=== PATIENT | female | born 1990 | race Two or more races ===

== ENCOUNTER 2017-11-22 19:35 | Emergency (ER) | payer OTHER ==
--- NOTE | 2017-11-22 20:28 | ER Document Report ---
ED GI/ - General Chief Complaint: Vag Bleeding, +preg <12wks Stated Complaint: CRAMPING/BLEEDING 10 WEEKS Time Seen by Provider: 11/22/17 20:18 Mode of Arrival: Ambulatory Information source: Patient Notes: Chief complaint: Vaginal bleeding History of complain:( obtained from----patient) 27 years old female 10 weeks , presents today with 2 episodes of bleeding she noted in the pad. No heavy bleeding. She also had lower abdominal cramps. No nausea vomiting. Denies any constitutional symptoms 2 days ago she had an ultrasound they could not find a heart sound. Onset: Since this morning gradual Duration: Since this morning Severity: Mild to moderate Quality: Crampy Context: Exacerbating factor and relieving factors: None REVIEW OF SYSTEMS: CONSTITUTIONAL : Denies fever, chills, or sweats. Denies recent illness. EENT: Denies eye, ear, throat, or mouth pain or symptoms. Denies nasal or sinus congestion or discharge. Denies throat, tongue, or mouth swelling or difficulty swallowing. CARDIOVASCULAR: Denies chest pain. Denies palpitations or racing or irregular heart beat. Denies ankle edema. RESPIRATORY: Denies cough, cold, or chest congestion. Denies shortness of breath, difficulty breathing, or wheezing. GASTROINTESTINAL: Denies distention. Denies nausea, vomiting, or diarrhea. Denies blood in vomitus, stools, or per rectum. Denies black, tarry stools. Denies constipation. GENITOURINARY: Denies difficulty urinating, painful urination, burning, frequency, blood in urine, or discharge. FEMALE GENITOURINARY: Denies vaginal bleeding, heavy or abnormal periods, irregular periods. Denies vaginal discharge or odor. MUSCULOSKELETAL: Denies back or neck pain or stiffness. Denies joint pain or swelling. SKIN: Denies rash, lesions or sores. HEMATOLOGIC : Denies easy bruising or bleeding. LYMPHATIC: Denies swollen, enlarged glands. NEUROLOGICAL: Denies confusion or altered mental status. Denies passing out or loss of consciousness. Denies dizziness or lightheadedness. Denies headache. Denies weakness or paralysis or loss of use of either side. Denies problems with gait or speech. Denies sensory loss, numbness, or tingling. Denies seizures. PSYCHIATRIC: Denies anxiety or stress. Denies depression, suicidal ideation, or homicidal ideation. ALL OTHER SYSTEMS REVIEWED AND NEGATIVE. PHYSICAL EXAMINATION: GENERAL: Well-appearing, well-nourished and in no acute distress. HEAD: Atraumatic, normocephalic. EYES: Pupils equal round and reactive to light, extraocular movements intact, conjunctiva are normal. ENT: Nares patent, oropharynx clear without exudates. Moist mucous membranes. NECK: Normal range of motion, supple without lymphadenopathy LUNGS: Breath sounds clear to auscultation bilaterally and equal. No wheezes rales or rhonchi. HEART: Regular rate and rhythm without murmurs ABDOMEN: Soft, nontender, nondistended abdomen. No guarding, no rebound. No masses appreciated. Examination of genitals-deferred Musculoskeletal: Normal range of motion, no pitting or edema. No cyanosis. NEUROLOGICAL: Cranial nerves grossly intact. Normal speech, normal gait. Normal sensory, motor exams PSYCH: Normal mood, normal affect. SKIN: Warm, Dry, normal turgor, no rashes or lesions noted. Dictation was performed using [employer] voice recognition software - [facility] Notes: 11/22/17 20:27 Dictated - Related Data Allergies/Adverse Reactions: No Known Allergies Allergy (Unverified 09/08/13 22:54) Past Medical History - Social History Smoking Status: Never Smoker Chew tobacco use (# tins/day): No Frequency of alcohol use: None Drug Abuse: None Lives with: Family Family History: Reviewed & Not Pertinent, Hypertension Patient has suicidal ideation: No Patient has homicidal ideation: No Renal/ Medical History: Denies: Hx Peritoneal Dialysis Musculoskeletal Medical History: Reports Hx Musculoskeletal Trauma Traumatic Medical History: Reports: Hx Fractures - Immunizations Immunizations up to date: Yes Hx Diphtheria, Pertussis, Tetanus Vaccination: Yes Review of Systems - Review of Systems Notes: Dictated Physical Exam - Vital signs Vitals: Temp Pulse Resp BP Pulse Ox 98.5 F 68 20 113/74 100 11/22/17 19:46 11/22/17 19:46 11/22/17 19:46 11/22/17 19:46 11/22/17 19:46 - Notes Notes: Dictated Course - Vital Signs Vital signs: Temp Pulse Resp BP Pulse Ox 98.5 F 68 20 113/74 100 11/22/17 19:46 11/22/17 19:46 11/22/17 19:46 11/22/17 19:46 11/22/17 19:46 - Laboratory Result Diagrams: 11/22/17 20:30 Laboratory results interpreted by me: 11/22/17 20:30 WBC 10.6 H Discharge - Discharge Clinical Impression: Threatened Condition: Fair Disposition: HOME, SELF-CARE Instructions: Threatened Abortions ( Patients)
[2017-11-22 20:39] LABS: ABSOLUTE BASOPHILS # (AUTO) 0.1 10^3/uL (0.0-0.2); ABSOLUTE EOSINOPHILS # (AUTO) 0.1 10^3/uL (0.0-0.6); ABSOLUTE LYMPHOCYTES (AUTO) 3.4 10^3/uL (0.5-4.7); ABSOLUTE MONOCYTES (AUTO) 0.6 10^3/uL (0.1-1.4); ABSOLUTE NEUT (AUTO) 6.4 10^3/uL (1.7-8.2); BASOPHILS % (AUTO) 0.5 % (0-2); EOSINOPHILS % (AUTO) 1.2 % (0-6); HEMATOCRIT 39.9 % (36.0-47.0); HEMOGLOBIN 13.7 g/dL (12.0-15.5); LYMPHOCYTES % (AUTO) 32.4 % (13-45); MEAN CORPUSCULAR HEMOGLOBIN 31.1 pg (27.0-33.4); MEAN CORPUSCULAR HGB CONC 34.4 g/dL (32.0-36.0); MEAN CORPUSCULAR VOLUME 91 fl (80-97); PLATELET COUNT 267 10^3/uL (150-450); RED CELL DISTRIBUTION WIDTH 12.3 % (11.5-14.0); SEGMENTED NEUTROPHILS % (AUTO) 59.9 % (42-78); TOTAL CELLS COUNTED % (AUTO) 100 %; WHITE BLOOD COUNT 10.6 10^3/uL (4.0-10.5)
--- NOTE | 2017-11-22 22:27 | RADIOLOGY REPORT (SQ) ---
US TRANSVAGINAL HISTORY: , bleeding COMPARISON: None. TECHNIQUE: Multiple grayscale and Color doppler real-time sonographic images were obtained by the neurology technologist. Selected static images are presented to the radiologist. FINDINGS: There is an intrauterine gestational sac and yolk sac with mean sac diameter 2.3 x 1.6 x 2.5 cm, which corresponds to 7 weeks 3 days no pole is identified at this time. IMPRESSION: Intrauterine gestational sac and yolk sac. No pole is identified.
[2017-11-22 23:28] VITALS: BP 129/82
== END 2017-11-22 23:29 | disposition home or self-care (01) ==
LOC: ER 19:35
DX: O20.0 Threatened abortion (principal); O20.9 Hemorrhage in early pregnancy, unspecified; Z3A.10 10 weeks gestation of pregnancy
CPT/HCPCS: 36415; 76817; 84702; 85025; 99284

== ENCOUNTER 2017-11-25 20:09 | Emergency (ER) | payer OTHER ==
[2017-11-25] MEDS ORDERED: ACETAMINOPHEN 325 MG TABLET PO ONE ×2 (23:53→23:56)
[2017-11-25] MEDS ORDERED: PENICILLIN G BENZATHINE 1.2 MILLION UNIT/2 ML DISP.SYRIN IM ONE (23:57)
--- NOTE | 2017-11-26 01:02 | RADIOLOGY REPORT (SQ) ---
EXAM DESCRIPTION: XR CHEST 2 VIEWS COMPLETED DATE/TME: 11/25/2017 23:57 CLINICAL HISTORY: cough, cp COMPARISON: None. FINDINGS: Frontal and lateral views of the chest. The cardiomediastinal silhouette has normal size and contour. No consolidation, pneumothorax, or pleural effusion. No displaced rib fractures identified. Upper abdominal soft tissues are unremarkable. IMPRESSION: 1. No acute pulmonary process identified.
[2017-11-26 01:18] VITALS: BP 105/60
--- NOTE | 2017-11-26 01:42 | ER Document Report ---
HPI - HPI Patient complains to provider of: Sore throat, chest pressure Onset: This afternoon Onset/Duration: Gradual Quality of pain: Achy Pain Level: 3 Context: Patient presents complaining of sore throat with chest pressure that started this afternoon. Patient does report mild cough. Patient does have a fever here tonight. Patient is currently 10 weeks . Associated Symptoms: Chest pain, Nonproductive cough, Fever, Sore throat. denies: Vomiting Exacerbated by: Denies Relieved by: Denies Similar symptoms previously: No Recently seen / treated by doctor: No - ROS ROS below otherwise negative: Yes Systems Reviewed and Negative: Yes All other systems reviewed and negative - CONSTITUTIONAL Constitutional: REPORTS: Fever, Chills - EENT EENT: REPORTS: Sore Throat. DENIES: Ear Pain, Eye problems - NEURO Neurology: DENIES: Headache, Vision blurred, Dizzinesss / Vertigo - CARDIOVASCULAR Cardiovascular: REPORTS: Chest pain - RESPIRATORY Respiratory: REPORTS: Coughing. DENIES: Trouble Breathing - GASTROINTESTINAL Gastrointestinal: DENIES: Abdominal Pain, Patient vomiting, Black / Bloody Stools - URINARY Urinary: DENIES: Dysuria, Urgency, Frequency - REPRODUCTIVE LMP: august 2017 10 weeks - MUSCULOSKELETAL Musculoskeletal: DENIES: Extremity pain - DERM Skin Color: Normal Skin Problems: None Past Medical History - General Information source: Patient - Social History Smoking Status: Never Smoker Frequency of alcohol use: None Drug Abuse: None Occupation: None Family History: Reviewed & Not Pertinent, Hypertension Patient has suicidal ideation: No Patient has homicidal ideation: No Renal/ Medical History: Denies: Hx Peritoneal Dialysis Musculoskeletal Medical History: Reports Hx Musculoskeletal Trauma Traumatic Medical History: Reports: Hx Fractures Surgical Hx: Negative - Immunizations Immunizations up to date: Yes Hx Diphtheria, Pertussis, Tetanus Vaccination: Yes Vertical Provider Document - CONSTITUTIONAL Agree With Documented VS: Yes Exam Limitations: No Limitations General Appearance: WD/WN, No Apparent Distress - INFECTION CONTROL TRAVEL OUTSIDE OF THE [place] IN LAST 30 DAYS: No - HEENT HEENT: Atraumatic, Normocephalic, Pharyngeal Exudate, Pharyngeal Tenderness, Pharyngeal Erythema - NECK Neck: Lymphadenopathy-Left, Lymphadenopathy-Right - RESPIRATORY Respiratory: Breath Sounds Normal, No Respiratory Distress. negative: Chest Non -Tender - Anterior chest wall tenderness to palpation - CARDIOVASCULAR Cardiovascular: Regular Rhythm, Tachycardia - GI/ABDOMEN Gastrointestinal: Abdomen Soft, Abdomen Non-Tender - BACK Back: Normal Inspection - MUSCULOSKELETAL/EXTREMETIES Musculoskeletal/Extremeties: MAEW - NEURO Level of Consciousness: Awake, Alert, Appropriate Motor/Sensory: No Motor Deficit - DERM Integumentary: Warm, Dry, No Rash Course - Re-evaluation Re-evalutation: 11/26/17 01:39 Patient's respirations even and unlabored, patient nontoxic in appearance. Patient does have exudative hypertrophic tonsils with cervical lymphadenopathy concerning for tonsillitis despite negative rapid strep testing. Good return precautions given to patient. Patient verbalized understanding and agrees with plan of care. Chest x-ray reviewed, no concern for pneumonia. - Vital Signs Vital signs: Temp Pulse Resp BP Pulse Ox 99.0 F 108 H 18 105/60 97 11/26/17 01:17 11/26/17 01:17 11/26/17 01:17 11/26/17 01:17 11/26/17 01:17 - Diagnostic Test Radiology reviewed: Image reviewed, Reports reviewed Discharge - Discharge Clinical Impression: Tonsillitis Fever Qualifiers: Fever type: unspecified Qualified Code(s): R50.9 - Fever, unspecified Chest pain Qualifiers: Chest pain type: unspecified Qualified Code(s): R07.9 - Chest pain, unspecified Condition: Stable Disposition: HOME, SELF-CARE Instructions: Acetaminophen, Antibiotic Shot ([facility]), Chest Pain of Unclear Cause ([facility]), Tonsillitis ([facility]) Additional Instructions: Return immediately for any new or worsening symptoms Followup with your primary care provider, call tomorrow to make a followup appointment Follow-up with your MEDIA ANALYTICS MANAGER provider tomorrow for recheck. Increase oral fluids and stay well-hydrated Take Tylenol [id number] for your pain as well as fever Referrals: [facility] [Provider Group] - Follow up as needed
== END 2017-11-26 01:55 | disposition home or self-care (01) ==
LOC: ER 20:09
DX: O99.511 Diseases of the respiratory system complicating pregnancy, first trimester (principal); J03.90 Acute tonsillitis, unspecified; O26.891 Other specified pregnancy related conditions, first trimester; R07.89 Other chest pain; R05 Cough; R50.9 Fever, unspecified; Z3A.10 10 weeks gestation of pregnancy
CPT/HCPCS: 99283; 96372; 87070; 87880; 87077; 71046; J0561

== ENCOUNTER 2019-01-11 21:00 | Outpatient (CLI) | payer OTHER ==
[2019-01-11 21:35] LABS: APPEARANCE,URINE CLEAR; BILIRUBIN,URINE NEGATIVE (NEGATIVE); COLOR,URINE STRAW; GLUCOSE, URINE NEGATIVE (NEGATIVE); KETONES,URINE NEGATIVE (NEGATIVE); LEUKOCYTE ESTERASE,URINE NEGATIVE (NEGATIVE); NITRITE,URINE NEGATIVE (NEGATIVE); PROTEIN,URINE NEGATIVE (NEGATIVE); URINE SPECIFIC GRAVITY 1.001; UROBILINOGEN,URINE NEGATIVE mg/dL (<2.0)
[2019-01-11 22:24] LABS: URINE AMPHETAMINES SCREEN NEGATIVE; URINE BARBITURATES SCREEN NEGATIVE; URINE BENZODIAZEPINES SCREEN NEGATIVE; URINE COCAINE SCREEN NEGATIVE; URINE MARIJUANA (THC) SCREEN NEGATIVE; URINE METHADONE SCREEN NEGATIVE; URINE PHENCYCLIDINE SCREEN NEGATIVE
[2019-01-12] MEDS: HYDROXYZINE PAMOATE 50 MG CAPSULE ONE ×2 (00:02→00:03)
--- NOTE | 2019-01-12 00:05 | Non Stress Test Report ---
Non Stress Test Datetime Report Generated by CPN: 01/12/2019 00:05 DEMOGRAPHIC Test Number: 1 EGA NST: 38.2 VITAL SIGNS Temperature - NST: 98.5 Pulse - NST: 81 RESP - NST: 14 NBPSYS NST: 120 NBPDIA NST: 68 URINE RESULTS Urine Protein, NST: Negative Urine Ketones - NST: Negative Urine Glucose - NST: Negative Urine Blood - NST: Negative MONITORING Monitor Explained: Monitor Explained; Test Explained; Patient Verbalized Understanding Time on Monitor: 01/11/2019 21:17 Time off Monitor: 01/11/2019 23:50 NST Duration: 153 NST INTERVENTIONS NST Interventions: PO Hydration; Vibroacoustic Stim; For Biophysical Profile Physician Notified NST: Dr. Howard BABY A: [id number] BABY A Movement : Present Contraction Frequency : irreg FHR Baseline : 135 Accelerations : 15X15 Decelerations : Variable Variability : Moderate 6-25bpm NST Review: Meets Criteria for Reactive NST NST Review and Verified By : D Bellavance RN NST Results: Reactive NST REPORT Report Trigger: Send Report
--- NOTE | 2019-01-12 00:19 | RADIOLOGY REPORT (SQ) ---
EXAM DESCRIPTION: US BIOPHYSICAL PROFILE WITHOUT NON STRESS TEST COMPLETED DATE/TME: 01/11/2019 22:52 CLINICAL HISTORY: 28 years Female occasional variable on nst COMPARISON: None. TECHNIQUE: Transabdominal duplex imaging performed to evaluate the pelvis. FINDINGS: The fetus is in vertex presentation. heart rate 149 bpm. Posterior placenta. SUYAPA 12.2 cm. breathing, tone and movement observed. IMPRESSION: Normal biophysical profile 10/02
[2019-01-12] MEDS ORDERED: HYDROXYZINE PAMOATE 50 MG CAPSULE PO ONE (00:30)
== END 2019-01-11 23:59 | disposition home or self-care (01) ==
LOC: LC 21:00
PROVIDERS: ATTEND Obstetrics & Gynecology Gynecology
PROC: 4A1HXCZ Monitoring of Products of Conception, Cardiac Rate, External Approach (ICD-10-PCS; principal; 2019-01-11)
DX: O47.1 False labor at or after 37 completed weeks of gestation (principal); Z3A.38 38 weeks gestation of pregnancy
CPT/HCPCS: 76819; 80307; 81005

== ENCOUNTER 2019-01-14 09:25 | Inpatient (IN) | payer OTHER ==
[2019-01-14] MEDS ORDERED: OXYTOCIN/NORMAL SALINE 20 UNIT/1,000 ML RTUINJ IV PRN ×2 (09:49→20:32)
[2019-01-14] MEDS ORDERED: RINGERS SOLUTION,LACTATED 300 ML IV ONE (09:49)
[2019-01-14] MEDS: RINGERS SOLUTION,LACTATED 1,000 ML IV PRN ×2 (10:35→19:12)
[2019-01-14 10:38] LABS: ABSOLUTE EOSINOPHILS # (AUTO) 0.1 10^3/uL (0.0-0.6); ABSOLUTE LYMPHOCYTES (AUTO) 2.2 10^3/uL (0.5-4.7); ABSOLUTE MONOCYTES (AUTO) 0.4 10^3/uL (0.1-1.4); ABSOLUTE NEUT (AUTO) 6.1 10^3/uL (1.7-8.2); BASOPHILS % (AUTO) 0.3 % (0-2); EOSINOPHILS % (AUTO) 0.8 % (0-6); HEMATOCRIT 33.8 % (36.0-47.0); HEMOGLOBIN 11.7 g/dL (12.0-15.5); LYMPHOCYTES % (AUTO) 24.5 % (13-45); MEAN CORPUSCULAR HEMOGLOBIN 29.6 pg (27.0-33.4); MEAN CORPUSCULAR HGB CONC 34.5 g/dL (32.0-36.0); MEAN CORPUSCULAR VOLUME 86 fl (80-97); MONOCYTES % (AUTO) 5.1 % (3-13); PLATELET COUNT 181 10^3/uL (150-450); RED BLOOD COUNT 3.94 10^6/uL (3.72-5.28); RED CELL DISTRIBUTION WIDTH 15.3 % (11.5-14.0); SEGMENTED NEUTROPHILS % (AUTO) 69.3 % (42-78); TOTAL CELLS COUNTED % (AUTO) 100 %; WHITE BLOOD COUNT 8.8 10^3/uL (4.0-10.5)
[2019-01-14] MEDS ORDERED: OXYTOCIN/NORMAL SALINE 20 UNIT/1,000 ML RTUINJ ONE (10:40)
[2019-01-14 10:59] LABS: APPEARANCE,URINE SLIGHTLY-CLOUDY; BILIRUBIN,URINE NEGATIVE (NEGATIVE); COLOR,URINE YELLOW; GLUCOSE, URINE NEGATIVE (NEGATIVE); KETONES,URINE NEGATIVE (NEGATIVE); LEUKOCYTE ESTERASE,URINE LARGE (NEGATIVE); NITRITE,URINE NEGATIVE (NEGATIVE); PROTEIN,URINE 30 mg/dL (NEGATIVE); URINE SPECIFIC GRAVITY 1.018
[2019-01-14 11:50] LABS: URINE AMPHETAMINES SCREEN NEGATIVE; URINE BARBITURATES SCREEN NEGATIVE; URINE BENZODIAZEPINES SCREEN NEGATIVE; URINE COCAINE SCREEN NEGATIVE; URINE MARIJUANA (THC) SCREEN NEGATIVE; URINE METHADONE SCREEN NEGATIVE; URINE PHENCYCLIDINE SCREEN NEGATIVE
--- NOTE | 2019-01-14 12:32 | Admission Physical ---
Datetime Report Generated by CPN: 01/14/2019 12:31 CURRENT ADMISSION Hx Assessment: The History has been Reviewed and is Current Chief Complaint: Scheduled Induction of Labor Indication for Induction: Maternal Diabetes Admit Impression : Term, Intrauterine ; Induction of Labor Admit Plan: Admit to Unit; Initiate Labor Induction Protocol ALLERGIES Medication Allergies: No Medication Allergies: No Known Allergies (01/11/2019) Latex: No Latex Allergies Food Allergies: denies Environmental Allergies: denies OBSTETRICAL HISTORY EDC: 01/23/2019 00:00 : 4 Para: 2 Term: 2 : 0 SAB: 1 IAB: 0 Ectopic: 0 Livin Cesareans: 0 VBACs: 0 Multiple Births: 0 Gestational Diabetes: Yes Rh Sensitization: No Incompetent Cervix: No SAIMA: No Infertility: No ART Treatment: No Uterine Anomaly: No IUGR: No Hx Previous C/S: No Macrosomia: No Hx Loss/Stillborn: No PIH: No Hx : No Placenta Previa/Abruption: No Depression/PP Depression: No PTL/PROM: No Post Hemorrhage: No Current Procedures: Ultrasound; NST Obstetrical History Comments: G1-, VIABLE BABY GIRL 40.2 G2-, VIABLE BABY GIRL 42.0 G3-SAB, 8WKS G4-CURRENT SEE RECORDS Alcohol: No Marijuana : No Cocaine: No Other Illicit Drugs: No Cigarettes: Former Smoker. [id number] MEDICAL HISTORY Diabetes: Yes Diabetes Type: Gestational Diabetes Blood Transfusion: No Pulmonary Disease (Asthma, TB): No Breast Disease: No Hypertension: No Modular Set Crew Member Surgery: No Heart Disease: No Hosp/Surgery: Yes Autoimmune Disorder: No Anesthetic Complications: No Kidney Disease: No Abnormal Pap Smear: No Neuro/Epilepsy: No Psychiatric Disorders: No Other Medical Diseases: No Hepatitis/Liver Disease: No Significant Family History: No Varicosities/Phlebitis: No Trauma/Violence : No Thyroid Dysfunction: No Medical History Comments: childbirth x 2 INFECTIOUS HISTORY Gonorrhea: No Genital Herpes: No Chlamydia: No Tuberculosis: No Syphilis: No Hepatitis: No HIV/AIDS Exposure: No Rash or Viral Illness: No HPV: No PHYSICAL EXAM General: Normal Neurologic: Normal Abdomen: Normal Extremities: Normal Physical Exam Comments: pelvis proven to 10lbs 2 oz Vital Signs: Reviewed; Within Normal Limits VAGINAL EXAM Dilatation: 3 Contraction Comments: irregular MEMBRANES Membranes: Intact FETUS A EGA: 38.5 Monitoring: External US Variability: Moderate 6-25bpm Accelerations: 15X15 Decelerations: None FHR Category: Category I Presentation: Vertex Admit Comment: 28yo @ 38w5d into L_D for IOL secondary to GDM vs pre-existing DM. Pt. is O pos, RI, GBS neg. Significant hx of Obesity (BMI 37 @ NOB) and hx of microsomia with last baby (10lbs 2oz) as well as hx of smoking. Plan was IOL with pitocin per Dr. Howard. Pitocin started on admission, will re-evaluate when pitocin is at 20mu/min and consider AROM at that time. Evaluate earlier prn. PLANS FOR LABOR AND DELIVERY Labor and Delivery: None Pain Management: Natural Feeding Preference: Formula Benefit of Breast Feed Discussed: Yes Circumcision: Yes INFORMED CONSENT Assignment: Theresa Ferguson MD Signature: with User ID: Mary : with User ID: Mary
[2019-01-14] MEDS ORDERED: PROMETHAZINE HCL INJ 25 MG/1 ML VIAL ONE (17:50)
[2019-01-14] MEDS ORDERED: NALBUPHINE HCL INJ 10 MG/1 ML AMPULE ONE (18:31)
[2019-01-14] MEDS ORDERED: PROMETHAZINE HCL INJ 25 MG/1 ML VIAL IV ONE (19:00)
[2019-01-14] MEDS ORDERED: NALBUPHINE HCL INJ 10 MG/1 ML AMPULE INJ ONE (19:00)
[2019-01-14] MEDS ORDERED: MISOPROSTOL 0.2 MG TABLET ONE (19:24)
[2019-01-14] MEDS ORDERED: OXYTOCIN 10 UNIT/ML VIAL ONE (19:24)
[2019-01-14] MEDS ORDERED: LIDOCAINE 1% INJ-PF (10 MG/ML) 30 ML SDV ONE (19:25)
[2019-01-14] MEDS ORDERED: ACETAMINOPHEN WITH CODEINE #3 TABLET PO PRN ×2 (20:32)
[2019-01-14] MEDS ORDERED: MAGNESIUM HYDROXIDE SUSP 30 ML UDCUP PO PRN (20:32)
[2019-01-14] MEDS ORDERED: NA PHOS,M-B/NA PHOS,DI-BA (ADULT) 133 ML ENEMA PR PRN (20:32)
[2019-01-14] MEDS ORDERED: DIPH/PERTUSS(ACELL)/TETANUS VAC/PF 0.5 ML SYR (>=10YO) IM PRN (20:32)
[2019-01-14] MEDS ORDERED: BENZOCAINE/MENTHOL AEROSOL SPRAY 56 ML TOP PRN (20:32)
[2019-01-14] MEDS ORDERED: GLYCERIN/WITCH HAZEL LEAF 1 EACH MED..WIPE TP PRN (20:32)
[2019-01-14] MEDS ORDERED: DIBUCAINE 1% OINTMENT 56 GM TP PRN (20:32)
[2019-01-14] MEDS ORDERED: ACETAMINOPHEN 650 MG SUPP.RECT PR PRN (20:32)
[2019-01-14] MEDS ORDERED: MEASLES,MUMPS&RUBELLA VACC/PF 0.5 ML VIAL SUBCUT PRN (20:32)
[2019-01-14] MEDS ORDERED: ZOLPIDEM TARTRATE 5 MG TABLET PO PRN (20:32)
[2019-01-14] MEDS ORDERED: PSEUDOEPHEDRINE HCL 30 MG TABLET PO PRN (20:32)
[2019-01-14] MEDS ORDERED: PROMETHAZINE HCL INJ 25 MG/1 ML VIAL IV PRN (20:32)
[2019-01-14] MEDS ORDERED: DIPHENHYDRAMINE HCL 25 MG CAPSULE PO PRN (20:32)
[2019-01-14] MEDS ORDERED: PROMETHAZINE HCL 25 MG SUPP.RECT PR PRN (20:32)
[2019-01-14] MEDS ORDERED: PROMETHAZINE HCL 25 MG TABLET PO PRN (20:32)
[2019-01-14] MEDS ORDERED: METHYLERGONOVINE MALEATE 0.2 MG TABLET ONE (20:33)
[2019-01-14] MEDS ORDERED: IBUPROFEN 800 MG TABLET ONE (20:43)
[2019-01-14] MEDS ORDERED: METHYLERGONOVINE MALEATE 0.2 MG TABLET PO SCH (22:00)
[2019-01-14] MEDS ORDERED: BENZOCAINE/MENTHOL AEROSOL SPRAY 56 ML ONE (22:11)
--- NOTE | 2019-01-14 22:35 | Delivery Summary ---
Del Sum A-C Datetime Report Generated by CPN: 01/14/2019 22:35 DELIVERY PERSONNEL DELIVERY PERSONNEL: [id number] Delivery Doctor:: Theresa Ferguson MD Labor and Delivery Nurse:: Pamella Squires RNsecurity intelligence analyst Nurse:: Gris Laura RN MATERNAL INFORMATION Delivery Anesthesia: None Medications After Delivery: Pitocin Drip 20 Units/1000ml NSS Meds After Delivery Comment: Orders received for .2 Methergen PO Q6 Estimated Blood Loss (ml): 300 Maternal Complications: None Provider Comments: After delivery of the head, a nuchal x2 was noted both loose. These were reduced and the shoulders with rest of body delivered easily. vigorous at delivery and cord clamping delayed 30 seconds. Mother and both stable after delivery. LABOR SUMMARY EDC: 01/23/2019 00:00 No. Babies in Womb: 1 Attempted: No Labor Anesthesia: None LABOR INFORMATION Reason for Induction: Maternal Diabetes Onset of Labor: 01/14/2019 15:23 Complete Dilatation: 01/14/2019 20:12 Oxytocin: Induction Group B Beta Strep: Negative Antibiotics # of Doses: 0 Antibiotics Time of Last Dose: N/A Name of Antibiotic Given: N/A Steroids Given: None Reason Steroids Not Administered: Not Applicable Other Reason Not Administered: n/a MEMBRANES Membranes Rupture Method: Spontaneous Rupture of Membranes: 01/14/2019 15:23 Length of Rupture (hr): 4.93 Amniotic Fluid Color: Clear Amniotic Fluid Amount: Moderate Amniotic Fluid Odor: Normal STAGES OF LABOR Stage 1 hr: 4 Stage 1 min: 49 Stage 2 hr: 0 Stage 2 min: 7 Stage 3 hr: 0 Stage 3 min: 4 Total Time in Labor hr: 5 Total Time in Labor min: 0 VAGINAL DELIVERY Episiotomy: None Laceration #1: None Laceration Extension #1: N/A Laceration Repair: Not Applicable Sponge Count Correct: Yes Sharps Count Correct: N/A CSECTION DELIVERY Primary Indication: N/A BABY A INFORMATION Delivery Date/Time: 01/14/2019 20:19 Method of Delivery: Vaginal Born in Route : No : N/A Forceps: N/A Vacuum Extraction: N/A Shoulder Dystocia : No PRESENTATION/POSITION BABY A Presentation: Cephalic Cephalic Presentation: Vertex Vertex Position: Right Occipital Anterior Breech Presentation: N/A PLACENTA INFORMATION BABY A Placenta Delivery Time : 01/14/2019 20:23 Placenta Method of Delivery: Spontaneous Placenta Status: Delivered SCORES BABY A Heart Rate 1 min: >100 bpm Resp Effort 1 min: Slow, Irregular Reflex Irritability 1 min: Cough or Sneeze or Pulls Away Muscle Tone 1 min: Active Motion Color 1 min: Body [place], Extremities Blue Resuscitation Effort 1 min: Tactile Stimulation SCORE 1 MIN: 8 Heart Rate 5 min: >100 bpm Resp Effort 5 min: Slow, Irregular Reflex Irritability 5 min: Cough or Sneeze or Pulls Away Muscle Tone 5 min: Active Motion Color 5 min: Body [place], Extremities Blue Resuscitation Effort 5 min: Tactile Stimulation SCORE 5 MIN: 8 INFORMATION BABY A Gestational Age at Delivery: 38.5 Gestational Status: Early Term- 37- 38.6 Weeks Outcome : Liveborn Condition : Stable Sex: Male IDENTIFICATION BABY A Verification Date/Time: 01/14/2019 20:36 ID Band Number: [id number] Mother's Name Verified: Yes Infant RN Verifying Infant: Grace Musa, RN and Pamella Squires, RN WEIGHT/LENGTH BABY A Infant Birthweight (gm): 3784 Infant Weight (lb): 8 Weight (oz): 5 Infant Length (in): 19.50 Infant Length (cm): 49.53 CORD INFORMATION BABY A No. Cord Vessels: 3 Nuchal Cord : Around Neck x2, Loose Cord Blood Taken: Yes-For Eval (Mom's Blood Type - or O+) Suction: Mouth ASSESSMENT BABY A Infant Complications: Other Complications- Other: Double Nuchal Physical Findings at Delivery: Within Normal Limits Infant Respirations: Appears Normal Skin to Skin: Yes Kick Plate Installer/ALS Called : No Infant Care By: JNiebuhr,RN Transferred To: Remains with Mother BABY B INFORMATION : N/A SIGNATURES Signature: with User ID: [email or web address] : with User ID: [email or web address]
[2019-01-15] MEDS ORDERED: METHYLERGONOVINE MALEATE 0.2 MG TABLET ONE (02:02)
[2019-01-15] MEDS: IBUPROFEN 800 MG TABLET PO SCH ×4 (06:06→21:48)
[2019-01-15 07:15] LABS: HEMATOCRIT 31.8 % (36.0-47.0); HEMOGLOBIN 10.8 g/dL (12.0-15.5); MEAN CORPUSCULAR HEMOGLOBIN 29.3 pg (27.0-33.4); MEAN CORPUSCULAR HGB CONC 33.9 g/dL (32.0-36.0); MEAN CORPUSCULAR VOLUME 86 fl (80-97); PLATELET COUNT 166 10^3/uL (150-450); RED BLOOD COUNT 3.69 10^6/uL (3.72-5.28); RED CELL DISTRIBUTION WIDTH 15.3 % (11.5-14.0); WHITE BLOOD COUNT 13.6 10^3/uL (4.0-10.5)
--- NOTE | 2019-01-15 09:28 | PDOC PROGRESS REPORT ---
Subjective-OB Progress Note for:: 01/15/19 Physical Exam (OB) Vital Signs: Temp Pulse Resp BP Pulse Ox 97.7 F 66 16 112/61 100 01/15/19 07:31 01/15/19 07:31 01/15/19 07:31 01/15/19 07:31 01/15/19 07:31 Intake & Output 01/14/19 01/15/19 01/16/19 06:59 06:59 06:59 Intake Total 1000 Balance 1000 Weight 119.3 kg - Lochia Lochia Amount: Small 10-25 ml - Abdomen Description: Soft Hernia Present: No Bowel Sounds: Normoactive Flatus Presence: Present Stool: No Objective-Diagnostic Laboratory: 01/15/19 06:54 01/14/19 01/14/19 01/14/19 10:17 10:17 10:30 WBC 8.8 RBC 3.94 Hgb 11.7 L Hct 33.8 L MCV 86 MCH 29.6 MCHC 34.5 RDW 15.3 H Plt Count 181 Seg Neutrophils % 69.3 Urine Color YELLOW Urine Appearance SLIGHTLY-CLOUDY Urine pH 6.0 Ur Specific Russell 1.018 Urine Protein 30 H Urine Glucose (UA) NEGATIVE Urine Ketones NEGATIVE Urine Blood SMALL H Urine Nitrite NEGATIVE Ur Leukocyte Esterase LARGE H Blood Type O POSITIVE Antibody Screen NEGATIVE 01/15/19 06:54 WBC 13.6 H RBC 3.69 L Hgb 10.8 L Hct 31.8 L MCV 86 MCH 29.3 MCHC 33.9 RDW 15.3 H Plt Count 166 Seg Neutrophils % Urine Color Urine Appearance Urine pH Ur Specific Russell Urine Protein Urine Glucose (UA) Urine Ketones Urine Blood Urine Nitrite Ur Leukocyte Esterase Blood Type Antibody Screen
[2019-01-15] MEDS: METHYLERGONOVINE MALEATE 0.2 MG TABLET PO SCH ×2 (10:12→17:29)
[2019-01-15] MEDS: PRENATAL VITAMIN W DHA CAPSULE PO SCH (10:13)
[2019-01-15] MEDS: FAMOTIDINE 20 MG TABLET PO SCH ×3 (10:13→21:48)
[2019-01-15] MEDS: DOCUSATE SODIUM 100 MG CAPSULE PO SCH ×2 (10:13→17:29)
[2019-01-15] MEDS: SENNOSIDES/DOCUSATE 8.6-50 MG 1 EACH TABLET PO SCH (10:14)
[2019-01-15] MEDS: FERROUS SULFATE 325 MG TABLET PO SCH ×2 (10:14→17:29)
[2019-01-16] MEDS: IBUPROFEN 800 MG TABLET PO SCH ×2 (05:42→13:21)
[2019-01-16] MEDS: FERROUS SULFATE 325 MG TABLET PO SCH (09:38)
[2019-01-16] MEDS: FAMOTIDINE 20 MG TABLET PO SCH (09:38)
[2019-01-16] MEDS: DOCUSATE SODIUM 100 MG CAPSULE PO SCH (09:38)
[2019-01-16] MEDS: PRENATAL VITAMIN W DHA CAPSULE PO SCH (09:38)
[2019-01-16] MEDS: SENNOSIDES/DOCUSATE 8.6-50 MG 1 EACH TABLET PO SCH (09:38)
--- NOTE | 2019-01-16 09:43 | PDOC PROGRESS REPORT ---
Subjective-OB Progress Note for:: 01/16/19 Subjective: Sitting up in chair, no c/o, ready to go home, bottle feeding, constipated, will take suppository at home, scant bleeding, bottle feeding, will check BS at home Physical Exam (OB) Vital Signs: Temp Pulse Resp BP Pulse Ox 97.7 F 50 L 17 102/59 L 99 01/16/19 07:21 01/16/19 07:21 01/15/19 19:40 01/16/19 07:21 01/16/19 07:21 Intake & Output 01/15/19 01/16/19 01/17/19 06:59 06:59 06:59 Intake Total 1000 500 Balance 1000 500 Weight 119.3 kg - PIH/Pre-Eclampsia DTR's: 1 + Clonus: Negative Headache: Absent Epigastric Pain: No Visual Changes: No - Lochia Lochia Amount: Scant < 10 ml Lochia Color: Rubra/Red - Abdomen Description: Soft, Round Hernia Present: No Fundal Description: Firm, Midline Fundal Height: u/u - u/2 Objective-Diagnostic Laboratory: 01/15/19 06:54 Assessment and Plan(PN) - Assessment and Plan (1) Delivery normal Is this a current diagnosis for this admission?: Yes (2) Encounter for induction of labor Is this a current diagnosis for this admission?: Yes (3) Gestational diabetes mellitus (GDM) affecting fourth Is this a current diagnosis for this admission?: Yes (4) Obesity (BMI 30-39.9) Is this a current diagnosis for this admission?: Yes - Time Spent with Patient Time with patient: Less than 15 minutes Medications reviewed and adjusted accordingly: Yes - Disposition Anticipated Discharge: Home Within: within 24 hours
--- NOTE | 2019-01-16 09:48 | PDOC DISCHARGE SUMMARY ---
Impression - Admit/DC Date/PCP Admission Date/Primary Care Provider: 01/14/19 09:25 Discharge Date: 01/16/19 - Discharge Diagnosis (1) Delivery normal Is this a current diagnosis for this admission?: Yes (2) Encounter for induction of labor Is this a current diagnosis for this admission?: Yes (3) Gestational diabetes mellitus (GDM) affecting fourth Is this a current diagnosis for this admission?: Yes (4) Obesity (BMI 30-39.9) Is this a current diagnosis for this admission?: Yes - Additional Information Resuscitation Status: Full Code Discharge Diet: As Tolerated, Regular Discharge Activity: Activity As Tolerated, No Lifting Over 10 Pounds, No Lifting/Push/Pulling, Pelvic Rest Referrals: SANTHOSH FINK MD [ACTIVE STAFF] - ([facility] 4 weeks) Home Medications: Ferrous Sulfate [Iron] 1 tab PO DAILY 01/11/19 No122/Iron/Folic Acid [ Multi Tablet] 1 tab PO DAILY 01/11/19 HPI Gestational Age: 38.5 Reason(s) for Admission: Induction of Labor, Gestional Diabetes Procedures: NST, Ultrasound Intrapartum Procedure(s): Spontaneous Vaginal Delivery - baby home with pt Hospital Course Hospital Course: routine Results Laboratory Results: WBC 13.6 10^3/uL (4.0-10.5) H 01/15/19 06:54 RBC 3.69 10^6/uL (3.72-5.28) L 01/15/19 06:54 Hgb 10.8 g/dL (12.0-15.5) L 01/15/19 06:54 Hct 31.8 % (36.0-47.0) L 01/15/19 06:54 MCV 86 fl (80-97) 01/15/19 06:54 MCH 29.3 pg (27.0-33.4) 01/15/19 06:54 MCHC 33.9 g/dL (32.0-36.0) 01/15/19 06:54 RDW 15.3 % (11.5-14.0) H 01/15/19 06:54 Plt Count 166 10^3/uL (150-450) 01/15/19 06:54 Lymph % (Auto) 24.5 % (13-45) 01/14/19 10:17 [place] % (Auto) 5.1 % (3-13) 01/14/19 10:17 Eos % (Auto) 0.8 % (0-6) 01/14/19 10:17 Baso % (Auto) 0.3 % (0-2) 01/14/19 10:17 Absolute Neuts (auto) 6.1 10^3/uL (1.7-8.2) 01/14/19 10:17 Absolute Lymphs (auto) 2.2 10^3/uL (0.5-4.7) 01/14/19 10:17 Absolute Monos (auto) 0.4 10^3/uL (0.1-1.4) 01/14/19 10:17 Absolute Eos (auto) 0.1 10^3/uL (0.0-0.6) 01/14/19 10:17 Absolute Basos (auto) 0.0 10^3/uL (0.0-0.2) 01/14/19 10:17 Seg Neutrophils % 69.3 % (42-78) 01/14/19 10:17 Urine Color YELLOW 01/14/19 10:30 Urine Appearance SLIGHTLY-CLOUDY 01/14/19 10:30 Urine pH 6.0 (5.0-9.0) 01/14/19 10:30 Ur Specific [place] 1.018 01/14/19 10:30 Urine Protein 30 mg/dL (NEGATIVE) H 01/14/19 10:30 Urine Glucose (UA) NEGATIVE mg/dL (NEGATIVE) 01/14/19 10:30 Urine Ketones NEGATIVE mg/dL (NEGATIVE) 01/14/19 10:30 Urine Blood SMALL (NEGATIVE) H 01/14/19 10:30 Urine Nitrite NEGATIVE (NEGATIVE) 01/14/19 10:30 Urine Bilirubin NEGATIVE (NEGATIVE) 01/14/19 10:30 Urine Urobilinogen 2.0 mg/dL (<2.0) H 01/14/19 10:30 Ur Leukocyte Esterase LARGE (NEGATIVE) H 01/14/19 10:30 Urine Ascorbic Acid 20 (NEGATIVE) H 01/14/19 10:30 Urine Opiates Screen NEGATIVE 01/14/19 10:30 Urine Methadone Screen NEGATIVE 01/14/19 10:30 Ur Barbiturates Screen NEGATIVE 01/14/19 10:30 Ur Phencyclidine Scrn NEGATIVE 01/14/19 10:30 Ur Amphetamines Screen NEGATIVE 01/14/19 10:30 U Benzodiazepines Scrn NEGATIVE 01/14/19 10:30 Urine Cocaine Screen NEGATIVE 01/14/19 10:30 U Marijuana (THC) Screen NEGATIVE 01/14/19 10:30 RPR NONREACTIVE (NONREACTIVE) 01/14/19 10:17 Blood Type O POSITIVE 01/14/19 10:17 Antibody Screen NEGATIVE 01/14/19 10:17 Plan Health Concerns: normal pp course Plan of Treatment: check blood sugars randomly Goals: no complications
[2019-01-16 11:17] VITALS: BP 105/59
== END 2019-01-16 13:44 | disposition home or self-care (01) | DRG 807 ==
LOC: LR 09:25 → 2S 22:45
PROVIDERS: ADMIT Obstetrics & Gynecology; ATTEND Obstetrics & Gynecology
PROC: 10E0XZZ Delivery of Products of Conception, External Approach (ICD-10-PCS; principal; 2019-01-14)
PROC: 3E033VJ Introduction of Other Hormone into Peripheral Vein, Percutaneous Approach (ICD-10-PCS; 2019-01-14)
DX: O24.429 Gestational diabetes mellitus in childbirth, unspecified control (principal); Z37.0 Single live birth; K59.00 Constipation, unspecified; O69.81X0 Labor and delivery complicated by cord around neck, without compression, not applicable or unspecified; O99.214 Obesity complicating childbirth; Z3A.38 38 weeks gestation of pregnancy; Z87.891 Personal history of nicotine dependence
CPT/HCPCS: 36415; 80307; 81005; 85025; 85027; 86592; 86850; 86900; 86901; J2300; J2550; J2590; J3490